=== PATIENT | female | born 1965 | race Caucasian/White ===

== ENCOUNTER → 2020-04-13 | Outpatient (CLI) | payer OTHER ==
[~2020-04-13] MED LIST: ALL DAY ALLERGY10 MG PO; COZAAR50 MG PO; CYMBALTA60 MG PO; DDAVP0.2 MG PO; IMITREX100 MG PO; LOVENOX SY40 MG/0.4 SQ; NEURONTIN800 MG PO; PERCOCET 10-321 EACH PO; PROVENTIL HFA6.7 GM INH; SYNTHROID112 MCG PO; ZANAFLEX4 MG PO
[2020-04-13 11:08] LABS: BUN/CREATININE RATIO 11 (0-10)
== END ==
LOC: LAB 10:25
PROVIDERS: Internal Medicine
DX: D89.89 Other specified disorders involving the immune mechanism, not elsewhere classified (principal); R76.8 Other specified abnormal immunological findings in serum; M25.50 Pain in unspecified joint; E03.9 Hypothyroidism, unspecified; Z79.1 Long term (current) use of non-steroidal anti-inflammatories (NSAID)
CPT/HCPCS: 36415; 80053; 84439; 84443